=== PATIENT | male | born 1990 | race African-American/Black ===

== ENCOUNTER 2016-05-26 18:41 | Emergency (ER) | payer OTHER ==
--- NOTE | 2016-05-26 20:58 | EDDOCDS ---
Nurse's Notes [facility] Name: Greg Scott Age: 26 yrs Sex: Male : 1990 Arrival Date: 05/26/2016 Time: 18:41 Bed PR Private MD: ALMATILDE ANTOINE Diagnosis: Dysuria Presentation: 05/26 18:55 Presenting complaint: Patient states: Pain after voiding for 2 days. No difficulty dwg voiding. Adult Sepsis Screening: The patient does not have new or worsening altered mentation. Patient's respiratory rate is less than 22. Systolic blood pressure is greater than 100. Patient has a qSOFA score of 0- Negative Sepsis Screen. Suicide/Homicide risk assessment- the patient denies having any suicidal and/or homicidal ideations and does not present with any other emotional, behavioral or mental health complaints. 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 Transition of care: patient was not received from another setting of care. 18:55 Acuity: AISHA Level 5 dwg 18:55 Method Of Arrival: Walkin/Carried/Asstd dwg Triage Assessment: 18:57 General: Appears in no apparent distress. Pain: Pain currently is 2 out of 10 on a pain dwg scale. HIV screening NA for this visit Offered previously. Historical: - Allergies: no known allergies; - Home Meds: 1. none - PMHx: none; - PSHx: none; - Social history: Smoking status: Patient states was never smoker of tobacco. No barriers to communication noted, The patient speaks fluent Colombian. - Family history: Not pertinent. - : The pt / caregiver states he / she is not on anticoagulants. Home medication list is obtained from the patient. - Exposure Risk Screening:: None identified. Screenin:54 Screening information is obtained from the patient. Fall risk: No risks identified. kmg1 Assistance ADL's: requires no assistance with activities of daily living. Abuse/DV Screen: The patient / caregiver reports he/she is: not in a situation that causes fear, pain or injury. Nutritional screening: No deficits noted. Advance Directives: There is no active DNR order. home support is adequate. Assessment: 20:54 General: Appears in no apparent distress, comfortable, Behavior is appropriate for age, kmg1 cooperative, pleasant. Pain: Location: groin. : Urine is clear, Reports pain with urination. Vital Signs: 18:43 BP 158 / 78; Pulse 68; Resp 18 S; Temp 96.6(O); Pulse Ox 100% on R/A; Weight 79.38 kg dd6 (R); Height 73 in. (185.42 cm) (R); 20:51 BP 130 / 69; Pulse 60; Resp 18; Temp 97.6(O); Pulse Ox 100% on R/A; Pain 0/10; ct3 18:43 Body Mass Index 23.09 (79.38 kg, 185.42 cm) dd6 Vitals: 18:43 Log In Time: May 26, 2016 at 18:41. dd6 ED Course: 18:43 Patient visited by Rob Greer PCA. dd6 18:43 [facility] is Private Physician. dd6 18:43 Patient moved to Waiting dd6 18:44 Patient moved to Pre RCE dd6 18:57 Triage Initiated dwg 20:14 Yoav Rausch PA is PHCP. mo1 20:14 Gerry Santana DO is Attending Physician. mo1 20:14 Patient moved to Triage 2 ms2 20:17 Patient visited by Yash Escudero,ZACK. ms2 20:17 GC & Chlamydia Amplification Sent. ms2 20:17 Urine Culture Sent. ms2 20:17 Urinalysis Sent. ms2 20:27 Patient visited by Yoav Rausch PA. mo1 20:39 Patient moved to TR2 kmg1 20:47 [facility] is Referral Physician. mo1 20:47 Patient moved to PR1 / 25 ct3 20:51 Patient visited by Shefali Romero PCA. ct3 20:54 The patient / caregiver is instructed regarding the plan of care and ED course. kmg1 20:54 No IV's were initiated during this patient's visit. No procedures done that require [facility] assistance. 20:57 [place] Payment Agreement was scanned into [employer]ion[employer]ault and attached to record. jp5 Order Results: Lab Order: Urinalysis; SPEC'M 05/26/16 20:15 Test: APPEARANCE, URINE; Value: CLEAR; Range: CLEAR; Status: F Test: COLOR, URINE; Value: YELLOW; Range: YELLOW; Status: F Test: PH,URINE; Value: 7.0; Range: 5.0-9.0; Units: UNITS; Status: F Test: SPECIFIC GRAVITY URINE AUTO; Value: 1.009; Range: 1.002-1.035; Status: F Test: PROTEIN, URINE AUTO; Value: NEGATIVE; Range: NEGATIVE; Units: mg/dL; Status: F Test: GLUCOSE, URINE (UA) AUTO; Value: NEGATIVE; Range: NEGATIVE; Units: mg/dL; Status: F Test: KETONE, URINE AUTO; Value: NEGATIVE; Range: NEGATIVE; Units: mg/dL; Status: F Test: UROBILINOGEN, URINE AUTO; Value: 0.2; Range: 0.0-2.0; Units: mg/dL; Status: F Test: BILIRUBIN, URINE AUTO; Value: NEGATIVE; Range: NEGATIVE; Status: F Test: NITRITE, URINE AUTO; Value: NEGATIVE; Range: NEGATIVE; Status: F Test: LEUKOCYTE ESTERASE, URINE AUTO; Value: 1+; Range: NEGATIVE; Abnormal: Above high normal; Status: F Test: BLOOD, URINE BLOOD; Value: NEGATIVE; Range: NEGATIVE; Status: F Test: WBC, URINE AUTO; Value: 3; Range: 0-3; Units: /HPF; Status: F Test: RBC, URINE AUTO; Value: 1; Range: 0-3; Units: /HPF; Status: F Test: BACTERIA, URINE AUTO; Value: NEGATIVE; Range: NEGATIVE; Status: F Test: SQUAMOUS EPITHELIAL CELL UR AU; Value: 0; Range: 0-6; Units: /HPF; Status: F Test: HYALINE CAST, URINE AUTO; Value: 0; Range: 0-1; Units: /LPF; Status: F Outcome: 20:47 Discharge ordered by Provider. mo1 20:54 Discharge Assessment: Patient awake, alert and oriented x 3. No cognitive and/or kmg1 functional deficits noted. Patient verbalized understanding of disposition instructions. Patient awake and alert. patient administered narcotics - no. The following High Risk Discharge criteria are identified: None. Discharged to home ambulatory. Condition: stable. Discharge instructions given to patient, Instructed on discharge instructions, follow up and referral plans. Demonstrated understanding of instructions, Pt was receptive of discharge instructions/ teaching. No special radiology studies were completed. Property sent home with patient. 20:57 Patient left the ED. kmg1 Signatures: Yash EscuderoRN RN ms2 Alivia Lopez, RN RN kmg1 Bernardo Manning, RN RN dwg Rob Greer, CLIENT EXPERIENCE SPECIALIST CLIENT EXPERIENCE SPECIALIST dd6 Shefali Romero, CLIENT EXPERIENCE SPECIALIST CLIENT EXPERIENCE SPECIALIST ct3 Yova Rausch PA PA mo1 Reynaldo Liu jp5 JUANITO
--- NOTE | 2016-05-26 20:58 | EDDOCDS ---
Physician Documentation [facility] Name: Greg Scott Age: 26 yrs Sex: Male : 1990 Arrival Date: 05/26/2016 Time: 18:41 Bed PR Private MD: [facility] Disposition: 05/26/16 20:47 Discharged to Home/Self Care. Impression: Dysuria. - Condition is Stable. - Discharge Instructions: Dysuria, Urodynamic Testing, [id number]. - Medication Reconciliation, Local Pharmacy Hours form. - Follow up: [facility]; When: Call to arrange an appointment; Reason: Recheck today's complaints, Continuance of care. - Problem is new. - Symptoms are unchanged. Historical: - Allergies: no known allergies; - Home Meds: 1. none - PMHx: none; - PSHx: none; - Social history: Smoking status: Patient states was never smoker of tobacco. No barriers to communication noted, The patient speaks fluent Mosotho. - Family history: Not pertinent. - : The pt / caregiver states he / she is not on anticoagulants. Home medication list is obtained from the patient. - Exposure Risk Screening:: None identified. Vital Signs: 05/26 18:43 BP 158 / 78; Pulse 68; Resp 18 S; Temp 96.6(O); Pulse Ox 100% on R/A; Weight 79.38 kg / dd6 175 lbs (R); Height 73 in. (185.42 cm) (R); 20:51 BP 130 / 69; Pulse 60; Resp 18; Temp 97.6(O); Pulse Ox 100% on R/A; Pain 0/10; ct3 18:43 Body Mass Index 23.09 (79.38 kg, 185.42 cm) dd6 MDM: 18:53 Urinalysis Ordered. EDMS 18:53 Urine Culture Ordered. EDMS 18:53 GC & Chlamydia Amplification Ordered. EDMS 20:45 Urinalysis Reviewed. mo1 20:57 [facility] Payment Agreement was scanned into Cell[employer] and attached to record. jp5 20:57 Financial registration complete. jp5 Signatures: Dispatcher MedHost EDMS Alivia Lopez RN RN kmg1 Bernardo Manning RN RN Yoav Billingsley PA PA mo1 Reynaldo Liu jp5 The chart was reviewed and I authenticate all verbal orders and agree with the evaluation and treatment provided.Attachments: 20:57 [facility] Payment Agreement jp5 MTDD
--- NOTE | 2016-05-28 21:58 | EDDOCDS ---
Physician Documentation [facility] Name: Greg Scott Age: 26 yrs Sex: Male : 1990 Arrival Date: 05/26/2016 Time: 18:41 Bed PR Private MD: [facility] Disposition: 05/26/16 20:47 Discharged to Home/Self Care. Impression: Dysuria. - Condition is Stable. - Discharge Instructions: Dysuria, Urodynamic Testing, [id number]. - Medication Reconciliation, Local Pharmacy Hours form. - Follow up: [facility]; When: Call to arrange an appointment; Reason: Recheck today's complaints, Continuance of care. - Problem is new. - Symptoms are unchanged. Historical: - Allergies: no known allergies; - Home Meds: 1. none - PMHx: none; - PSHx: none; - Social history: Smoking status: Patient states was never smoker of tobacco. No barriers to communication noted, The patient speaks fluent Eritrean. - Family history: Not pertinent. - : The pt / caregiver states he / she is not on anticoagulants. Home medication list is obtained from the patient. - Exposure Risk Screening:: None identified. Vital Signs: 05/26 18:43 BP 158 / 78; Pulse 68; Resp 18 S; Temp 96.6(O); Pulse Ox 100% on R/A; Weight 79.38 kg / dd6 175 lbs (R); Height 73 in. (185.42 cm) (R); 20:51 BP 130 / 69; Pulse 60; Resp 18; Temp 97.6(O); Pulse Ox 100% on R/A; Pain 0/10; ct3 18:43 Body Mass Index 23.09 (79.38 kg, 185.42 cm) dd6 MDM: 18:53 Urinalysis Ordered. EDMS 18:53 Urine Culture Ordered. EDMS 18:53 GC & Chlamydia Amplification Ordered. EDMS 20:45 Urinalysis Reviewed. mo1 20:57 [place] [place] Agreement was scanned into hi5 and attached to record. jp5 20:57 Financial registration complete. jp5 05/27 10:44 T-Sheet-- Draft Copy was scanned into hi5 and attached to record. gb Signatures: Dispatcher SegundoHogar EDAlivia Garza, RN RN kmg1 Bernardo Manning RN RN dwg Rin Haynes, Jairo Reg gb Yoav Rausch PA PA mo1 Reynaldo Liu jp5 The chart was reviewed and I authenticate all verbal orders and agree with the evaluation and treatment provided.Attachments: 05/26 20:57 [place] [place] Agreement jp5 05/27 10:44 T-Sheet-- Draft Copy gb Chart Complete MTDD
--- NOTE | 2016-05-28 21:58 | EDDOCDS ---
Physician Documentation [facility] Name: Greg Scott Age: 26 yrs Sex: Male : 1990 Arrival Date: 05/26/2016 Time: 18:41 Bed PR Private MD: [facility] Disposition: 05/26/16 20:47 Discharged to Home/Self Care. Impression: Dysuria. - Condition is Stable. - Discharge Instructions: Dysuria, Urodynamic Testing, Uelo-sq-Kuau. - Medication Reconciliation, Local Pharmacy Hours form. - Follow up: [facility]; When: Call to arrange an appointment; Reason: Recheck today's complaints, Continuance of care. - Problem is new. - Symptoms are unchanged. Historical: - Allergies: no known allergies; - Home Meds: 1. none - PMHx: none; - PSHx: none; - Social history: Smoking status: Patient states was never smoker of tobacco. No barriers to communication noted, The patient speaks fluent Scottish. - Family history: Not pertinent. - : The pt / caregiver states he / she is not on anticoagulants. Home medication list is obtained from the patient. - Exposure Risk Screening:: None identified. Vital Signs: 05/26 18:43 BP 158 / 78; Pulse 68; Resp 18 S; Temp 96.6(O); Pulse Ox 100% on R/A; Weight 79.38 kg / dd6 175 lbs (R); Height 73 in. (185.42 cm) (R); 20:51 BP 130 / 69; Pulse 60; Resp 18; Temp 97.6(O); Pulse Ox 100% on R/A; Pain 0/10; ct3 18:43 Body Mass Index 23.09 (79.38 kg, 185.42 cm) dd6 MDM: 18:53 Urinalysis Ordered. EDMS 18:53 Urine Culture Ordered. EDMS 18:53 GC & Chlamydia Amplification Ordered. EDMS 20:45 Urinalysis Reviewed. mo1 20:57 [facility] Payment Agreement was scanned into Pro[employer] and attached to record. jp5 20:57 Financial registration complete. jp5 05/27 10:44 T-Sheet-- Draft Copy was scanned into Protonet and attached to record. gb Signatures: Dispatcher [employer] EDAlivia Garza, RN RN kmg1 Bernardo Manning RN RN dwg Rin Haynes, Jairo Reg gb Yoav Rausch PA PA mo1 Reynaldo Liu jp5 The chart was reviewed and I authenticate all verbal orders and agree with the evaluation and treatment provided.Attachments: 05/26 20:57 [facility] Payment Agreement jp5 05/27 10:44 T-Sheet-- Draft Copy gb Chart Complete MTDD
--- NOTE | 2016-05-28 21:58 | EDDOCDS ---
Nurse's Notes [facility] Name: Greg Scott Age: 26 yrs Sex: Male : 1990 Arrival Date: 05/26/2016 Time: 18:41 Bed PR Private MD: NVMATILDE ANTOINE Diagnosis: Dysuria Presentation: 05/26 18:55 Presenting complaint: Patient states: Pain after voiding for 2 days. No difficulty dwg voiding. Adult Sepsis Screening: The patient does not have new or worsening altered mentation. Patient's respiratory rate is less than 22. Systolic blood pressure is greater than 100. Patient has a qSOFA score of 0- Negative Sepsis Screen. Suicide/Homicide risk assessment- the patient denies having any suicidal and/or homicidal ideations and does not present with any other emotional, behavioral or mental health complaints. 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 Transition of care: patient was not received from another setting of care. 18:55 Acuity: AISHA Level 5 dwg 18:55 Method Of Arrival: Walkin/Carried/Asstd dwg Triage Assessment: 18:57 General: Appears in no apparent distress. Pain: Pain currently is 2 out of 10 on a pain dwg scale. HIV screening NA for this visit Offered previously. Historical: - Allergies: no known allergies; - Home Meds: 1. none - PMHx: none; - PSHx: none; - Social history: Smoking status: Patient states was never smoker of tobacco. No barriers to communication noted, The patient speaks fluent [place] Islander. - Family history: Not pertinent. - : The pt / caregiver states he / she is not on anticoagulants. Home medication list is obtained from the patient. - Exposure Risk Screening:: None identified. Screenin:54 Screening information is obtained from the patient. Fall risk: No risks identified. kmg1 Assistance ADL's: requires no assistance with activities of daily living. Abuse/DV Screen: The patient / caregiver reports he/she is: not in a situation that causes fear, pain or injury. Nutritional screening: No deficits noted. Advance Directives: There is no active DNR order. home support is adequate. Assessment: 20:54 General: Appears in no apparent distress, comfortable, Behavior is appropriate for age, kmg1 cooperative, pleasant. Pain: Location: groin. : Urine is clear, Reports pain with urination. Vital Signs: 18:43 BP 158 / 78; Pulse 68; Resp 18 S; Temp 96.6(O); Pulse Ox 100% on R/A; Weight 79.38 kg dd6 (R); Height 73 in. (185.42 cm) (R); 20:51 BP 130 / 69; Pulse 60; Resp 18; Temp 97.6(O); Pulse Ox 100% on R/A; Pain 0/10; ct3 18:43 Body Mass Index 23.09 (79.38 kg, 185.42 cm) dd6 Vitals: 18:43 Log In Time: May 26, 2016 at 18:41. dd6 ED Course: 18:43 Patient visited by Rob Greer PCA. dd6 18:43 [facility] is Private Physician. dd6 18:43 Patient moved to Waiting dd6 18:44 Patient moved to Pre RCE dd6 18:57 Triage Initiated dwg 20:14 Yoav Rausch PA is PHCP. mo1 20:14 Gerry Santana DO is Attending Physician. mo1 20:14 Patient moved to Triage 2 ms2 20:17 Patient visited by Yash Escudero,ZACK. ms2 20:17 GC & Chlamydia Amplification Sent. ms2 20:17 Urine Culture Sent. ms2 20:17 Urinalysis Sent. ms2 20:27 Patient visited by Yoav Rausch PA. mo1 20:39 Patient moved to TR2 kmg1 20:47 [facility] is Referral Physician. mo1 20:47 Patient moved to PR1 / 25 ct3 20:51 Patient visited by Shefali Romero PCA. ct3 20:54 The patient / caregiver is instructed regarding the plan of care and ED course. kmg1 20:54 No IV's were initiated during this patient's visit. No procedures done that require [facility] assistance. 20:57 [place] Payment Agreement was scanned into FanBridge and attached to record. jp5 22:04 Patient name changed from Greg\S\\S\Tyler\S\ to Greg\S\Luis M\S\Tyler. EDMS 05/27 10:44 T-Sheet-- Draft Copy was scanned into FanBridge and attached to record. gb Order Results: Lab Order: Urinalysis; SPEC'M 05/26/16 20:15 Test: APPEARANCE, URINE; Value: CLEAR; Range: CLEAR; Status: F Test: COLOR, URINE; Value: YELLOW; Range: YELLOW; Status: F Test: PH,URINE; Value: 7.0; Range: 5.0-9.0; Units: UNITS; Status: F Test: SPECIFIC GRAVITY URINE AUTO; Value: 1.009; Range: 1.002-1.035; Status: F Test: PROTEIN, URINE AUTO; Value: NEGATIVE; Range: NEGATIVE; Units: mg/dL; Status: F Test: GLUCOSE, URINE (UA) AUTO; Value: NEGATIVE; Range: NEGATIVE; Units: mg/dL; Status: F Test: KETONE, URINE AUTO; Value: NEGATIVE; Range: NEGATIVE; Units: mg/dL; Status: F Test: UROBILINOGEN, URINE AUTO; Value: 0.2; Range: 0.0-2.0; Units: mg/dL; Status: F Test: BILIRUBIN, URINE AUTO; Value: NEGATIVE; Range: NEGATIVE; Status: F Test: NITRITE, URINE AUTO; Value: NEGATIVE; Range: NEGATIVE; Status: F Test: LEUKOCYTE ESTERASE, URINE AUTO; Value: 1+; Range: NEGATIVE; Abnormal: Above high normal; Status: F Test: BLOOD, URINE BLOOD; Value: NEGATIVE; Range: NEGATIVE; Status: F Test: WBC, URINE AUTO; Value: 3; Range: 0-3; Units: /HPF; Status: F Test: RBC, URINE AUTO; Value: 1; Range: 0-3; Units: /HPF; Status: F Test: BACTERIA, URINE AUTO; Value: NEGATIVE; Range: NEGATIVE; Status: F Test: SQUAMOUS EPITHELIAL CELL UR AU; Value: 0; Range: 0-6; Units: /HPF; Status: F Test: HYALINE CAST, URINE AUTO; Value: 0; Range: 0-1; Units: /LPF; Status: F Lab Order: Urine Culture; SPEC'M 05/26/16 20:15 Test: URINE CULTURE; Value: URINE CULTURE RESULT NO GROWTH; Status: F Lab Order: GC & Chlamydia Amplification; SPEC'M 05/26/16 20:15 Test: CHLAMYDIA DNA AMPLIFICATION; Value: NEGATIVE; Range: NEGATIVE; Status: F Test: GC DNA AMPLIFICATION; Value: NEGATIVE; Range: NEGATIVE; Status: F Outcome: 05/26 20:47 Discharge ordered by Provider. mo1 20:54 Discharge Assessment: Patient awake, alert and oriented x 3. No cognitive and/or km functional deficits noted. Patient verbalized understanding of disposition instructions. Patient awake and alert. patient administered narcotics - no. The following High Risk Discharge criteria are identified: None. Discharged to home ambulatory. Condition: stable. Discharge instructions given to patient, Instructed on discharge instructions, follow up and referral plans. Demonstrated understanding of instructions, Pt was receptive of discharge instructions/ teaching. No special radiology studies were completed. Property sent home with patient. 20:57 Patient left the ED. [facility] Signatures: Dispatcher MedHost EDMS Yash EscuderoRN RN ms2 Alivia Lopez RN RN [facility] Bernardo Manning, ZACK RN [facility] Rin Haynes, Reg Reg gb Rob Greer, SWAHILI TEACHER SWAHILI TEACHER dd6 Nick, Shefali, SWAHILI TEACHER SWAHILI TEACHER ct3 Yoav Rausch PA PA mo1 Reynaldo Liu jp5 Chart Complete JUANITO
== END 2016-05-26 20:57 | disposition home or self-care (01) ==
LOC: M ED 18:41
DX: R30.0 Dysuria (principal)

== ENCOUNTER 2017-01-21 13:54 | Emergency (ER) | payer OTHER ==
[~2017-01-21] VITALS: Ht 190.5 cm; Wt 175.0 kg
--- NOTE | 2017-01-21 16:03 | REP ---
Clinical: Trauma . Comparison: None . Findings: The ventricles, sulci, and cisterns are normal in position and appearance. Bruno-white differentiation is maintained. No acute intracranial hemorrhage, mass/mass effect, pathology or trauma/injury. No evidence for acute infarction. No extra-axial fluid collection. Calvarium is intact. Paranasal sinuses and mastoid air cells are clear. Small posterior scalp contusion/hematoma. Impression: Small posterior scalp contusion. No evidence for acute intracranial pathology or trauma/injury. Signed by Jacobo Garrett MD 01/21/2017 03:54 P
--- NOTE | 2017-01-21 16:04 | REP ---
Clinical: Trauma. Technique: Axial noncontrast images through the facial bones to include the mandible with coronal and sagittal re-formations. Findings: The osseous structures are intact and there is no evidence for fracture or dislocation. Specifically, the bilateral zygomatic arches, nasal bones, and mandible including bilateral temporomandibular joints appear normal and symmetric. The sinuses and mastoid air cells are all well aerated and clear without fluid level to suggest occult trauma. The bilateral orbits including the globes and intraconal contents appear symmetric and normal. The surrounding soft tissues are grossly unremarkable. Impression: Normal maxillofacial CT. No evidence for acute pathology or trauma/injury. Signed by Jacobo Garrett MD 01/21/2017 03:56 P
[2017-01-21 16:55] VITALS: BP 139/75
== END 2017-01-21 16:55 | disposition home or self-care (01) ==
LOC: M ED 13:54
DX: S00.83XA Contusion of other part of head, initial encounter (principal); S00.03XA Contusion of scalp, initial encounter; W19.XXXA Unspecified fall, initial encounter; Y92.511 Restaurant or cafe as the place of occurrence of the external cause; Y93.89 Activity, other specified; Y99.8 Other external cause status